=== PATIENT | male | born 1960 | race Caucasian/White ===

== ENCOUNTER → 2024-05-31 10:05 | Outpatient (REF) | payer BC, SELFPAY | LOC: HWRAD 10:05 | PROVIDERS: ATTENDING PHYSICIAN Internal Medicine | DX: R05.9 Cough, unspecified (principal) | CPT/HCPCS: 71046 ==

== ENCOUNTER → 2024-10-05 06:18 | Outpatient (REF) | payer BC, SELFPAY | LOC: RAD 06:18 | PROVIDERS: ATTENDING PHYSICIAN Internal Medicine Gastroenterology; FAMILY PHYSICIAN Internal Medicine | DX: R09.89 Other specified symptoms and signs involving the circulatory and respiratory systems (principal) | CPT/HCPCS: 76770 ==

== ENCOUNTER 2024-10-17 06:21 | Day surgery (SDC) | payer BC, SELFPAY ==
[2024-10-17 07:14] LABS: Glucose - Point of Care 158 mg/dl (70-99)
== END 2024-10-17 08:25 | disposition home or self-care (01) ==
LOC: GI 06:21
PROVIDERS: ATTENDING PHYSICIAN Internal Medicine Gastroenterology
DX: Z12.11 Encounter for screening for malignant neoplasm of colon (principal); K57.30 Diverticulosis of large intestine without perforation or abscess without bleeding; K64.8 Other hemorrhoids; D12.2 Benign neoplasm of ascending colon; Z86.0100 Personal history of colon polyps, unspecified
CPT/HCPCS: 45380; 88305; 82962